=== PATIENT | male | born 1955 | race Asian ===

== ENCOUNTER 2021-08-05 15:32 | Emergency (ER) | payer OTHER ==
[~2021-08-05] VITALS: Ht 170.2 cm; Wt 75.9 kg
[2021-08-05 15:37] VITALS: BP 135/83
--- NOTE | 2021-08-05 15:46 | NUR ---
pt ambulated to bed 04
--- NOTE | 2021-08-05 16:04 | NUR ---
pt given water at this time
--- NOTE | 2021-08-05 16:47 | NUR ---
pt had total of 500ml of water intake, refused iv fluids
[2021-08-05 16:48] VITALS: BP 135/83
--- NOTE | 2021-08-05 16:49 | NUR ---
Patient discharged with v/s stable. Written and verbal after care instructions given and explained. Patient verbalized understanding. Ambulatory with steady gait. All questions addressed prior to discharge. Advised to follow up with PMD.
== END 2021-08-05 16:48 | disposition home or self-care (01) ==
LOC: MED 15:32
DX: L98.8 Other specified disorders of the skin and subcutaneous tissue (principal); E11.65 Type 2 diabetes mellitus with hyperglycemia
CPT/HCPCS: 82948; 99282